=== PATIENT | female | born 2000 | race African-American/Black ===

== ENCOUNTER 2021-01-18 02:32 | Emergency (ER) | payer MEDICAID ==
[~2021-01-18] VITALS: Ht 165.1 cm; Wt 59.1 kg
[2021-01-18 02:55] VITALS: BP 117/68
[2021-01-18] MEDS ORDERED: PERMETHRIN 5% 60 GM CREAM TP ONE (03:15)
== END 2021-01-18 03:25 | disposition home or self-care (01) ==
LOC: EMS 02:37
DX: B86 Scabies (principal)
CPT/HCPCS: 99282; Z7502; Z7610